=== PATIENT | male | born 1965 | race Caucasian/White ===

== ENCOUNTER 2018-12-30 11:59 | Observation (INO) ==
[2018-12-30] MEDS ORDERED: ALUM/MAG/SIMETH/LIDO VISC 1:1 30 ML BOTTLE PO STA (13:33)
[2018-12-30] MEDS ORDERED: ONDANSETRON 4 MG/2 ML VIAL IV STA (13:33)
[2018-12-30] MEDS ORDERED: NITROGLYCERIN 2% OINT 1 INCH/GM PACK TOP STA (13:33)
[2018-12-30] MEDS ORDERED: MORPHINE 4 MG/1 ML VIAL IV STA (13:33)
[2018-12-30] MEDS ORDERED: ASPIRIN 325 MG TABLET PO STA (13:33)
[2018-12-30 13:41] LABS: Basophils % 0.3 % (0.0-0.8); Eosinophils # 0.1 10*3/uL (0.0-0.87); Eosinophils % 0.9 % (0.00-10.9); Hematocrit 45.6 VOL% (42.0-52.0); Hemoglobin 15.3 GM/DL (14.0-18.0); Immature Granulocytes % 0.6 %; Immature Granulocytes Absolute 0.04 #; Lymphocytes # 1.4 10*3/uL (1.4-4.0); Lymphocytes % 19.6 % (21.2-54.2); Mean Corpuscular HGB Conc 33.6 GM/DL (32-36); Mean Corpuscular Volume 95.4 FL (87-102); Monocytes % 8.5 % (1.7-12.7); Neutrophils % 70.1 % (38.7-73.9); Platelet Count 186 T/CUMM (130-400); Red Blood Count 4.78 MC/CUMM (3.8-5.5); Red Cell Distribution Width 12.5 % (9.3-17.3)
[2018-12-30 13:45] LABS: INR 0.9; PT Patient Result 10.2 SECS (9.6-12.2)
[2018-12-30 13:53] LABS: Alanine Aminotransferase 26 U/L (16-61); Albumin 4.1 G/DL (3.4-5.0); Alkaline Phosphatase 109 U/L (45-117); Aspartate Amino Transferase 20 U/L (0-37); Blood Urea Nitrogen 14 MG/DL (7-18); Calcium 9.2 MG/DL (8.5-10.1); Estimated Glom Filtration Rate 85 ML/MIN; Glucose 115 MG/DL (74-106); Osmolality,Calculated 282.3 MOS/KG (273-304); Troponin I < 0.015 NG/ML (0.00-0.045)
[2018-12-30 14:26] LABS: Apearance,Urine CLEAR (Clear); Bilirubin,Urine Negative (Negative); Blood, Urine Negative (Negative); Glucose,Urine (UA) Negative (Negative); Ketones,Urine Negative (Negative); Mucus,Urine Occasional /LPF (Occasional); Nitrite,Urine Negative (Negative); Protein,Urine 30 MG/DL; RBC,Urine 2 /HPF (0-4); Transitional Epi Cells,Urine Occasional /HPF (<1); Urine Color Yellow (Yellow); Urine Specific Gravity 1.015 (1.001-1.035); Urine Urobilinogen < 2.0 EU/DL (0.2-1.0); WBC,Urine <1 /HPF (0-6)
[2018-12-30] MEDS ORDERED: METOPROLOL TARTRATE 25 MG TABLET PO STA (14:31)
[2018-12-30] MEDS ORDERED: hydrALAZINE 20 MG/1 ML VIAL IV STA (14:47)
[2018-12-30] MEDS ORDERED: LABETALOL 20 MG/4 ML SYRINGE IV STA (15:15)
[2018-12-30 15:36] LABS: Barbiturates Screen,Urine Negative (Negative); Benzodiazepines Screen,Urine Negative (Negative); Cannabinoid Screen,Urine Positive (Negative); Opiate Screen,Urine Negative (Negative); Phencyclidine Screen,Urine Negative (Negative)
[2018-12-30] MEDS ORDERED: ONDANSETRON 4 MG/2 ML VIAL IV PRN (15:36)
[2018-12-30] MEDS ORDERED: DOCUSATE SODIUM 100 MG CAPSULE PO PRN (15:36)
[2018-12-30] MEDS ORDERED: ACETAMINOPHEN 325 MG TABLET PO PRN (15:36)
[2018-12-30] MEDS ORDERED: KETOROLAC 30 MG/1 ML VIAL IV PRN (15:48)
[2018-12-30 16:33] LABS: Risk Ratio 4.27; Thyroid Stimulating Hormone 1.43 uIU/ml (0.358-3.74); VLDL CHOLESTEROL 61.4 MG/DL
[2018-12-30] MEDS: LISINOPRIL 10 MG TABLET PO SCH (18:04)
[2018-12-30] MEDS: amLODIPine 10 MG TABLET PO SCH (18:04)
[2018-12-30] MEDS ORDERED: ENOXAPARIN 40 MG/0.4 ML SYRINGE SUBCUT SCH (21:00)
[2018-12-31 05:17] LABS: Basophils % 0.3 % (0.0-0.8); Eosinophils # 0.1 10*3/uL (0.0-0.87); Hematocrit 40.2 VOL% (42.0-52.0); Hemoglobin 13.4 GM/DL (14.0-18.0); Immature Granulocytes % 0.3 %; Immature Granulocytes Absolute 0.02 #; Lymphocytes # 1.8 10*3/uL (1.4-4.0); Lymphocytes % 29.6 % (21.2-54.2); Mean Corpuscular HGB Conc 33.3 GM/DL (32-36); Mean Corpuscular Volume 96.2 FL (87-102); Monocytes % 7.1 % (1.7-12.7); Neutrophils % 60.7 % (38.7-73.9); Platelet Count 175 T/CUMM (130-400); Red Blood Count 4.18 MC/CUMM (3.8-5.5); Red Cell Distribution Width 12.7 % (9.3-17.3); White Blood Count 6.1 T/CUMM (4-12)
[2018-12-31 05:34] LABS: Calcium 8.7 MG/DL (8.5-10.1)
[2018-12-31 08:01] VITALS: BP 96/62
[2018-12-31] MEDS ORDERED: ASPIRIN EC 81 MG TABLET PO SCH (09:00)
[2018-12-31] MEDS ORDERED: NICOTINE 21 MG/24 HR PATCH TRANSDERM SCH (09:00)
[2018-12-31] MEDS ORDERED: PANTOPRAZOLE 40 MG TABLET PO SCH (09:00)
[2018-12-31] MEDS ORDERED: FENOFIBRATE 160 MG TABLET PO SCH (09:00)
[2018-12-31] MEDS: amLODIPine 10 MG TABLET PO SCH (09:01)
[2018-12-31] MEDS: LISINOPRIL 10 MG TABLET PO SCH (09:44)
[2018-12-31] MEDS ORDERED: GABAPENTIN 100 MG CAPSULE PO SCH (10:21)
[2018-12-31] MEDS ORDERED: OMEGA 3 ACID ETHYL ESTERS 1 GM CAPSULE PO SCH (10:27)
== END 2018-12-31 12:30 | disposition home or self-care (01) ==
LOC: N.EDINP 11:59 → N.ED 11:59 → N.EDINP 17:11 → N.2W 17:25
PROVIDERS: ADMIT Hospitalist; ATTEND Hospitalist